=== PATIENT | female | born 1990 ===

== ENCOUNTER → 2021-08-06 | Outpatient (CLI) | payer BC | END | disposition home or self-care (01) | LOC: PLD 11:36 → LAB SHORT 11:36 | DX: D22.61 Melanocytic nevi of right upper limb, including shoulder (principal) | CPT/HCPCS: 88305; 88342 ==

== ENCOUNTER → 2023-08-08 | Outpatient (CLI) | payer OTHER ==
[2023-08-08 16:14] LABS: Source, Urine Voided
[2023-08-08 17:24] LABS: Appearance, Urine Clear (Clear); Bilirubin, Urine Neg (Neg); Blood, Urine Neg (Neg); Glucose Qualitative, Urine Neg (Neg); Ketones, Urine Neg (Neg); Leukocyte Esterase, Urine Neg (Neg); Nitrite, Urine Neg (Neg); Protein, Urine Neg (Neg); Specific Gravity, Urine 1.005 (1.003-1.022); Urobilinogen, Urine NORM (Normal); pH, Urine 6.5 (5.0-8.0)
[2023-08-08 18:13] LABS: Color, Urine Pale Yellow (P-Yellow)
== END ==
LOC: LAB 16:09 → LAB SHORT 16:09
PROVIDERS: Registered Nurse Community Health
DX: R30.0 Dysuria (principal)
CPT/HCPCS: 81003; 87086

== ENCOUNTER → 2024-03-07 | Outpatient (CLI) | payer OTHER | LOC: LAB SHORT 11:46 → LAB 11:46 | DX: Z34.03 Encounter for supervision of normal first pregnancy, third trimester (principal); Z3A.36 36 weeks gestation of pregnancy | CPT/HCPCS: 87081; 87150 ==

== ENCOUNTER 2024-04-11 20:03 | Inpatient (IN) | payer OTHER ==
[~2024-04-11] VITALS: Ht 167.6 cm; Wt 100.9 kg
[2024-04-11 20:29] VITALS: BP 134/75
[2024-04-11] MEDS ORDERED: Misoprostol 200 MCG Tab PR PRN (21:20)
[2024-04-11] MEDS ORDERED: FentaNYL 2mcg/ml-Bup 0.1% Epd 250 ML EPI PRN (21:20)
[2024-04-11] MEDS ORDERED: Methylergonovine Maleate 0.2MG / ML 1ML Amp IM PRN (21:20)
[2024-04-11] MEDS ORDERED: Misoprostol 200 MCG Tab BC PRN (21:20)
[2024-04-11] MEDS ORDERED: Oxytocin 10 Unit / ML Vial IM PRN (21:20)
[2024-04-11] MEDS ORDERED: Carboprost Tromethamine 250 MCG/ML 1ML Amp IM PRN (21:20)
[2024-04-11] MEDS ORDERED: OXYTOCIN/RINGER'S LACTATE 500 ML IV PRN ×2 (21:20→21:25)
[2024-04-11] MEDS ORDERED: Lactated Ringer's 1,000 ML IV PRN ×4 (21:20→21:25)
[2024-04-11] MEDS ORDERED: Tranexamic Acid 100 ML IV SCH (21:20)
[2024-04-11] MEDS ORDERED: ePHEDrine Sulfate 50 MG/ML 1ML Injection XX PRN (21:20)
[2024-04-11] MEDS ORDERED: Adderall 5mg tab5 MG PO (21:23)
[2024-04-11] MEDS ORDERED: Adderall Xr 5 MG5 MG (21:23)
[2024-04-11] MEDS ORDERED: Misoprostol 25 MCG Tab VAG PRN (21:25)
[2024-04-11] MEDS ORDERED: FentaNYL Citrate 50 MCG/ML 2 ML Injection IV PRN ×2 (21:30→23:00)
[2024-04-11] MEDS ORDERED: Ondansetron HCl 2 MG / ML 2ML Vial IV PRN (21:30)
[2024-04-11] MEDS ORDERED: Calcium Carbonate 500 MG Tab Chew PO PRN (21:30)
[2024-04-11] MEDS ORDERED: Acetaminophen 500 MG Tab PO PRN (21:30)
[2024-04-11 22:42] LABS: BASOPHILS ABSOLUTE AUTO 0.03 K/mm3 (0.00-0.23); BASOPHILS PERCENT AUTO 0 % (0-2); EOSINOPHILS ABSOLUTE AUTO 0.06 K/mm3 (0.00-0.68); EOSINOPHILS PERCENT AUTO 1 % (0-6); Hematocrit 30.9 % (33.0-51.0); Hemoglobin 10.7 g/dL (11.5-16.0); IMMATURE GRAN ABSOLUTE AUTO 0.05 K/mm3 (0.00-0.10); IMMATURE GRAN PERCENT AUTO 1 % (0-1); LYMPHOCYTES ABSOLUTE AUTO 1.88 K/mm3 (0.84-5.20); LYMPHOCYTES PERCENT AUTO 22 % (21-46); MONOCYTES ABSOLUTE AUTO 0.61 K/mm3 (0.16-1.47); MONOCYTES PERCENT AUTO 7 % (4-13); Mean Corpuscular HGB 33.4 pg (26.0-34.0); Mean Corpuscular HGB Conc 34.6 g/dL (31.5-36.5); Mean Corpuscular Volume 97 fL (80-100); Mean Platelet Volume 11.9 fL (9.1-12.4); NEUTROPHILS ABSOLUTE AUTO 5.76 K/mm3 (1.96-9.15); NEUTROPHILS PERCENT AUTO 69 % (41-73); Platelet Count 161 K/mm3 (150-400); RDW Coefficient Variation 13.2 % (11.7-14.2); RDW Standard Deviation 46.5 fL (35.1-46.3); White Blood Cell Count 8.39 K/mm3 (4.00-11.30)
[2024-04-11] MEDS ORDERED: Zolpidem Tartrate 10 MG Tab PO PRN (22:45)
[2024-04-11 22:51] VITALS: BP 143/67
[2024-04-11 23:21] VITALS: BP 114/54
[2024-04-12] VITALS (38 sets, daily range): BP systolic 89–147; BP diastolic 48–93
[2024-04-12] MEDS ORDERED: Bisacodyl 10 MG Supp PR ONE (12:35)
[2024-04-13] VITALS (18 sets, daily range): BP systolic 107–134; BP diastolic 54–74
[2024-04-13] MEDS ORDERED: FLU VACC TS2024-25(6MOS UP)/PF 45 MCG/0.5 ML SYRINGE IM ONE (06:10)
[2024-04-13] MEDS ORDERED: Misoprostol 100 MCG Tab PO PRN (06:10)
[2024-04-13] MEDS ORDERED: Acetaminophen 325 MG TABLET PO PRN (06:10)
[2024-04-13] MEDS ORDERED: Docusate Sodium 100 MG Cap PO PRN (06:10)
[2024-04-13] MEDS ORDERED: Methylergonovine Maleate 0.2MG / ML 1ML Amp IM PRN (06:10)
[2024-04-13] MEDS ORDERED: Phenyleph/Mineral Oil/Petrolat 1 APPLIC/57 GM Tube PR PRN (06:10)
[2024-04-13] MEDS ORDERED: Benzocaine/Benzethon Topical Anesthetic Spray 78GM TOP PRN (06:15)
[2024-04-13] MEDS ORDERED: Witch Hazel/Glycerin PADS TOP PRN (06:15)
[2024-04-13] MEDS ORDERED: Misoprostol 200 MCG Tab PR PRN (06:15)
[2024-04-13] MEDS ORDERED: Ibuprofen 400 MG Tab PO PRN (06:15)
[2024-04-13] MEDS ORDERED: Carboprost Tromethamine 250 MCG/ML 1ML Amp IM PRN (06:15)
[2024-04-13] MEDS ORDERED: Lanolin Cream TOP PRN (06:15)
[2024-04-13] MEDS ORDERED: OxyCODONE 5 mg/Acetamin 325 mg TABLET PO PRN (06:20)
[2024-04-13] MEDS ORDERED: Lactated Ringer's 1,000 ML IV SCH (06:20)
[2024-04-13] MEDS ORDERED: Ketorolac Tromethamine 30mg Vial IV PRN (07:05)
[2024-04-13] MEDS ORDERED: Prenatal Vit/FE Fumarate/FA 1 Tab PO SCH (09:00)
[2024-04-13] MEDS ORDERED: Ketorolac Tromethamine 30mg Vial IV SCH (12:00)
[2024-04-13] MEDS ORDERED: Rho(D) Immune Globulin 300 MCG / SYR IM ONE (16:15)
[2024-04-14 05:05] VITALS: BP 115/55
[2024-04-14 07:24] LABS: BASOPHILS ABSOLUTE AUTO 0.03 K/mm3 (0.00-0.23); BASOPHILS PERCENT AUTO 0 % (0-2); EOSINOPHILS ABSOLUTE AUTO 0.17 K/mm3 (0.00-0.68); EOSINOPHILS PERCENT AUTO 1 % (0-6); Hematocrit 26.8 % (33.0-51.0); Hemoglobin 9.2 g/dL (11.5-16.0); IMMATURE GRAN ABSOLUTE AUTO 0.05 K/mm3 (0.00-0.10); IMMATURE GRAN PERCENT AUTO 0 % (0-1); LYMPHOCYTES ABSOLUTE AUTO 2.08 K/mm3 (0.84-5.20); LYMPHOCYTES PERCENT AUTO 17 % (21-46); MONOCYTES ABSOLUTE AUTO 0.81 K/mm3 (0.16-1.47); MONOCYTES PERCENT AUTO 7 % (4-13); Mean Corpuscular HGB 33.3 pg (26.0-34.0); Mean Corpuscular HGB Conc 34.3 g/dL (31.5-36.5); Mean Corpuscular Volume 97 fL (80-100); Mean Platelet Volume 11.9 fL (9.1-12.4); NEUTROPHILS ABSOLUTE AUTO 9.02 K/mm3 (1.96-9.15); NEUTROPHILS PERCENT AUTO 74 % (41-73); Platelet Count 157 K/mm3 (150-400); RDW Coefficient Variation 13.4 % (11.7-14.2); RDW Standard Deviation 46.7 fL (35.1-46.3); Red Blood Cell Count 2.76 M/mm3 (3.80-5.20); White Blood Cell Count 12.16 K/mm3 (4.00-11.30)
[2024-04-14 07:50] VITALS: BP 88/50
[2024-04-14 11:15] VITALS: BP 130/77
== END 2024-04-14 11:36 | disposition home or self-care (01) | DRG 807 ==
LOC: OBS 20:03 → BC 20:08 → OBS 20:43 → BC 20:49
PROVIDERS: ADMIT Family Medicine
PROC: 10E0XZZ Delivery of Products of Conception, External Approach (ICD-10-PCS; principal; 2024-04-13)
PROC: 0KQM0ZZ Repair Perineum Muscle, Open Approach (ICD-10-PCS; 2024-04-13)
PROC: 0UQMXZZ Repair Vulva, External Approach (ICD-10-PCS; 2024-04-13)
PROC: 3E0R3BZ Introduction of Anesthetic Agent into Spinal Canal, Percutaneous Approach (ICD-10-PCS; 2024-04-13)
PROC: 00HU33Z Insertion of Infusion Device into Spinal Canal, Percutaneous Approach (ICD-10-PCS; 2024-04-13)
DX: O48.0 Post-term pregnancy (principal); Z37.0 Single live birth; Z3A.41 41 weeks gestation of pregnancy; O76 Abnormality in fetal heart rate and rhythm complicating labor and delivery; Z79.899 Other long term (current) drug therapy; F90.9 Attention-deficit hyperactivity disorder, unspecified type; O99.344 Other mental disorders complicating childbirth; O99.214 Obesity complicating childbirth; O70.1 Second degree perineal laceration during delivery
CPT/HCPCS: 36415; 51702; 85025; 85460; 86850; 86900; 86901; 86923; A9270; J1885; J2405; J2590; J2791; J3010; J7120